=== PATIENT | female | born 1985 | race Caucasian/White ===

== ENCOUNTER 2017-04-23 18:42 | Inpatient (IN) ==
--- OUTSIDE RECORDS SUMMARY | 2017-04-23 18:46 | External Medical Summary | Continuity of Care Document ---
:1985 Author Organization [facility] Address [address] [place], [place] [id number] Phone Allergies, Adverse Reactions, Alerts Substance Reaction Severity Status No Known Drug Allergies Unknown Active Medications Medication Instructions Dosage Effective Status Comments Dates (start - stop) Generic Order OTC Multi-greens - Active Vitamin - once daily levothyroxine 25 take 1 tablet by 25 MCG - Active generic mcg tablet oral route every Synthroid day for Hypothyroid Aspir-81 81 mg take 1 tablet by 81 MG - Active tablet,delayed oral route every release day 28 mg take 1 tablet by Not Available - Active iron-800 mcg tablet oral route every day Problems Condition Effective Dates (start - stop) Clinical Status Supervision of other high risk - pregnancies, third trimester 34 weeks gestation of - Ot dis of bld/bld-form org/immun mechnsm comp preg, 1st tri Supervision of other high risk - pregnancies, second trimester Endo, nutritional and metab diseases - comp preg, second tri 16 weeks gestation of - Supervision of other high risk - pregnancies, first trimester 12 weeks gestation of - Supervision of other high risk - pregnancies, first trimester 9 weeks gestation of - Supervision of other high risk - pregnancies, first trimester 12 weeks gestation of - Supervision of other high risk - pregnancies, second trimester 24 weeks gestation of - Supervision of other high risk - pregnancies, second trimester Endo, nutritional and metab diseases - comp preg, second tri 20 weeks gestation of - Supervision of other high risk - pregnancies, second trimester 20 weeks gestation of - Supervision of other high risk - pregnancies, third trimester Endo, nutritional and metab diseases - comp preg, third tri 36 weeks gestation of - Supervision of other high risk - pregnancies, third trimester Endo, nutritional and metab diseases - comp preg, third tri 28 weeks gestation of - Type O blood, Rh negative - Supervision of other high risk - pregnancies, third trimester 32 weeks gestation of - Supervision of other high risk - pregnancies, third trimester 30 weeks gestation of - Endo, nutritional and metab diseases - comp preg, third tri Encounter For Screening For - Streptococcus B 36 weeks gestation of - Procedures Procedure Date OB Visit No Charge Results Test Name Date and Time Measure Units Reference Range Abnormal Flag Comments Unknown Advance Directives Directive Yes / No Effective Date File Name Unknown Encounters Encounter Practice Location Reason(s) Diagnoses Date Provider Care Team Description For Visit Members Elva Carlson Willis Referring In Womens 6-201 [place]. 700 Provider: [facility] [place] [address], [place], Dr, Jan 700 [id number], [facility], Medical [place] tel:[phone] [place], [facility] 120, [address] [id number] [facility]. [place], tel: [phone]. [id number] tel:[phone] Elva Onofre Willis Referring In Womens nutritional 8-201 [place]. 700 Provider: [facility] [place], and metab 7 Medical [place] [address], diseases comp [facility] [place], preg, third , Jan 700 [id number], triEncounter [facility], [facility] For [place] tel:[phone] Screening For [place], Jan 120, [address] Streptococcus [id number] [place], B36 weeks , [place]. [place], gestation of tel:[phone]. [phone] tel:[phone] Elva Carlson Supervision of Nov-0 Willis Referring In Womens Ultrasound other high 8-201 [place]. 700 Provider: Health TERA, risk 7 Medical [place] [address], pregnancies, [place], third Jan Beth [id number], trimesterEndo, 120, Medical [place] nutritional [place] tel: and metab [place], Jan 120, [address] diseases comp [id number] [place], preg, third , [place]. [place], tri36 weeks tel:[phone]. gestation of [id number] tel: [phone] Elva Carlson Supervision of Oct-2 Willis Referring In Womens other high 6-201 [place]. 700 Provider: Hunter HALEY risk 7 Medical [place] [address], pregnancies, [place], third Jan Beth [id number], [id number] 120, Medical [place] weeks [place] tel: gestation of [place], Jan 120, [address] [id number] [place], , [place]. [place], tel:[phone]. [id number] tel:[phone] Elva Carlson Supervision of Oct-1 Willis Referring In Womens other high 0-201 [place]. 700 Provider: Hunter HALEY, risk 7 Medical [place] [address], pregnancies, [place], third Jan Beth [id number], [email or web address] 120, Medical [place] weeks [place] tel: gestation of [place], Jan 120, [address] [id number] [place], , [place]. [place], tel:[phone]. [id number] tel:[phone] Elva Carlson Supervision of Sep-2 Willis Referring In Womens other high 6-201 [place]. 700 Provider: Hunter HALEY, risk 7 Medical [place] [address], pregnancies, [facility] [place], third Jan Beth [id number], [email or web address] 120, Medical [place] weeks [place] tel: gestation of [place], Jan 120, [address] [id number] [facility] , . [place], tel: [phone]. [id number] tel:[phone] Elva Carlson Supervision of Sep-1 Willis Referring In Womens other high 2-201 [place]. 700 Provider: Hunter HALEY, risk 7 Medical [place] [address], pregnancies, [facility] [place], [place], third Jan Beth [id number], trimesterEndo, 120, Medical [place] nutritional [place], [place] tel: and metab [place], Jan 120, [address]67 diseases comp [id number] [place], preg, third , [place]. [place], tri28 weeks tel:[phone]. gestation of [id number] tel: pregnancyType [id number] O blood, Rh negative [facility] Supervision of Willis Referring In Womens other high 7-201 [place]. 700 Provider: Hunter HALEY risk 7 Medical [place] [address], pregnancies, [place], second Jan Beth [id number], [id number] 120, Medical [place] weeks [place] tel: gestation of [place], Jan 120, [address] [id number] [facility] , . [place], tel:[phone]. [id number] tel:[phone] Elva aCrlson Supervision of Willis Referring In Womens other high 0-201 [place]. 700 Provider: Hunter HALEY, risk 7 Medical [place] [address], pregnancies, [facility] [place], second Jan Beth [id number], [email or web address] 120, Medical [place] weeks [place] tel: gestation of [place], Jan 120, [address]79 [id number] [facility] , . [place], tel: [phone]. [id number] tel:[phone] Elva Carlson Supervision of Nov-2 Willis Referring In Womens Ultrasound other high 0-201 [place]. 700 Provider: Hunter HALEY, risk 7 Medical [place] [address], pregnancies, [place], second Jan Beth [id number], trimesterEndo, 120, Medical [place] nutritional [place] tel: and metab [place], Jan 120, [address] diseases comp [id number] [place], preg, second , [place]. [place], tri20 weeks tel:[phone]. gestation of [id number] tel: [phone] Elva Carlson Supervision of Zaki-2 Willis Referring In Womens other high 1-201 [place]. 700 Provider: Hunter HALEY risk 7 Medical [place] [address], pregnancies, [facility] [place], second , [facility] 700 , trimesterEndo, 120, Medical [place] nutritional [place] tel: and metab [place], Jan 120, [address]15 diseases comp [id number] [place], preg, second , [place]. [place], tri16 weeks tel:[phone]. gestation of [id number] tel: [phone] Elva Carlson Supervision of May-2 Willis Referring In Womens other high 4-201 [place]. 700 Provider: Hunter HALEY risk 7 Medical [place] [address], pregnancies, [place], first , [facility] 700 [id number], [email or web address] 120, Medical [place] weeks [place] tel: gestation of [place], Jan 120, [address] [id number] [place], , [place]. [place], tel:[phone]. [id number] tel:[phone] Elva Carlson Supervision of May-2 Willis Referring In Womens Ultrasound other high 4-201 [place]. 700 Provider: Hunter HALEY, risk 7 Medical [place] [address], pregnancies, [place], first , [facility] 700 [id number], [id number] 120, Medical [place] weeks [place] tel:21 gestation of [place], Jan 120, 52843 [id number] [place], , . [place], tel:[phone]. [id number] tel:[phone] Elva Carlson May-0 Willis In Womens 7-201 [place]. 700 Hunter HALEY, 7 Medical [address], [address] , 120, [place], [place]: [place], [address] [id number] , . tel: [phone] Elva Carlson Supervision of May-0 Willis Referring In Womens other high 2-201 [place]. 700 Provider: Health [place], risk 7 Medical [place] [address], pregnancies, Center [place], first , [place] [id number], [id number] 120, Medical weeks [place] tel:+21 gestation of [place], Jan 120, [address]598 [id number] [facility]. [place], tel: [phone]. [id number] tel:[phone] Elva Carlson Apr-1 Willis In Womens 8-201 [place]. 700 Health [place], 7 Medical [address], [facility] [place], , [facility] , 120, [place], tel:+21 [place], [phone] [phone] , . tel: [phone] Elva Carlson Oth dis of Aug-1 Willis Referring In Womens bld/bld-form 1-201 [place]. 700 Provider: Health [place], org/immun 7 Medical [place] [address] [place], preg, 1st tri , [place] [address] [id number], 120, Medical [facility] tel:+ [place], Jan 120, [address] [id number] [facility]. [place], tel: [phone]. [id number] tel:[phone] Elva Carlson Dec-1 [facility] In Womens 9-201 [place]. [facility], 2 700 [address], [place], [place] [id number], , [facility] 120, tel:+21 [place], [address] [place], [id number] , . tel: [phone] Family History Family Member Diagnosis Age At Onset Father Blood Disorder Father Thrombosis Paternal Grandmother Stroke No family history of Diabetes No family history of Kidney Problems No family history of Breast Cancer No family history of Colon Cancer No family history of Epilepsy Maternal Grandfather Cardiovascular Disease No family history of Ovarian Cancer No family history of Thyroid Disorder Paternal Grandfather Cardiovascular Disease Paternal aunt Blood Disorder Paternal Grandmother Thrombosis Paternal Grandmother Stroke Maternal Aunt Gynecological Problem No family history of Hypertension No family history of Osteoporosis No family history of Lung Disease Immunizations Vaccine Date Status Comments Influenza, injectable, completed Source: New Immunization Record quadrivalent, preservative free, 3 yrs or older Tdap completed Source: New Immunization Record Rhophylac completed Source: New Immunization Record Payers Payer name Insurance type Covered alliance party ID Authorization(s) [facility] [id number] [facility] [id number] [facility] [id number] [facility] [id number] Social History Type Description Quantity Date Captured Alcohol Use Details No Caffeine Use Details Unknown Tobacco Use Status Unknown Smoking Status Never smoker Vital Signs Date / Height Weight BMI Pulse Blood Temperature Respiratory Body Head BMI Time: Rate Pressure Rate Surface Circumference percentile Area 188.40 29.9 125/64 2017 lbs 5 mm[Hg] 10:19 kg/m AM eter (2) Chief Complaint And Reason For Visit Unknown Chief Complaint And Reason For Visit Reason For Referral Reason For Referral Unknown Plan Of Care Date Type Action Status Future Order: Radiology Order Nuchal Translucency ([id number]) Ordered Future Order: Radiology Order Complete OB Ultrasound > 14 Ordered Weeks ([id number]) Future Order: Radiology Order Ultrasound OB Follow-up ([id number]) Ordered Date Type Problem Goal Intervention Status Start Date Unknown. History Of Present Illness Encounter Date Complaint History Of Present Illness This patient has no known history of present illness Functional Status Encounter Date Functional Assessment Cognitive Assessment Unknown Medications Administered Medication Instructions Dosage Effective Dates (start - stop) Status Comments Drug Treatment Unknown Instructions Date Instruction Additional Information new ob handbook Zika virus assessment & precautions HIV and other routine tests risk factors identified by history anticipated course of care nutrition and weight gain counseling, special diet toxoplasmosis precautions (cats / raw meat) sexual activity exercise indications for ultrasound influenza vaccine environmental / work hazards travel use of any medications (including supplements, vitamins, herbs, OTC drugs) domestic violence seat belt use childbirth classes / hospital facilities hospital registration genetic testing
--- OUTSIDE RECORDS SUMMARY | 2017-04-23 18:46 | External Medical Summary | Continuity of Care Document ---
:1985 Author Organization [facility] Address [address] [place], [place] [id number] Phone Allergies, Adverse Reactions, Alerts Substance Reaction [...] third trimester 30 weeks gestation of - Oth dis of bld/bld-form org/immun mechnsm comp preg, [...] third trimester 32 weeks gestation of - Procedures Procedure Date OB Visit No Charge Results Test Name Date and Time Measure Units Reference Range Abnormal Flag Comments Unknown Advance Directives Directive Yes / No Effective Date File Name Unknown Encounters Encounter Practice Location Reason(s) Diagnoses Date Provider Care Team Description For Visit Members Elva Carlson Supervision of Oct-1 Willis Referring In Womens other high 0-201 [place]. 700 Provider: Hunter HALEY risk 7 Medical [place] [address], pregnancies, [place], third Dr [facility] 700 [id number], [id number] 120, Medical weeks [facility] tel:+ gestation of [place], [facility] 120, [address] [id number] [facility]. [place], tel: [phone]. [id number] tel:[phone] Elva Carlson Supervision of Sep-2 Willis Referring In Womens other high 6-201 [place]. 700 Provider: Hunter HALEY risk 7 Medical [place] [address], pregnancies, [place], third Dr [facility] 700 [id number], 120, Medical [facility] tel: gestation of [place], [facility] 120, [address] [id number] [facility]. [place], tel: [phone]. [id number] tel:[phone] Elva Carlson Supervision of Sep-1 Willis Referring In Womens other high 2-201 [place]. 700 Provider: Hunter HALEY risk 7 Medical [place] [address], pregnancies, [place], third Dr [facility] 700 [id number], trimesterEndo, 120, Medical [place] nutritional [facility] tel: and metab [place], Jan 120, [address] diseases comp [id number] [place], preg, third , [place], tri28 weeks tel:[phone]. gestation of [id number] tel: pregnancyType [id number] O blood, Rh negative [facility] Supervision of Willis Referring In Womens other high 7-201 [place]. 700 Provider: Hunter HALEY risk 7 Medical [place] [address], pregnancies, [place], second , Jan 700 [id number], [id number] 120, Medical [place] weeks [facility] tel:21 gestation of [place], Jan 120, [address] [id number] [place], , [place], tel:[phone]. [id number] tel:[phone] Elva Carlson Supervision of Nov- Willis Referring In Womens other high 0-201 [place]. 700 Provider: Hunter HALEY risk 7 Medical [place] [address], pregnancies, [place], second , Jan 700 [id number], [id number] 120, Medical [place] [facility] tel:21 gestation of [place], Jan 120, [address] [id number] [place], , [place], tel:[phone]. [id number] tel:[phone] Elva Carlson Supervision of Nov- Willis Referring In Womens Ultrasound other high 0-201 [place]. 700 Provider: Hunter HALEY risk 7 Medical [place] [address], pregnancies, [place], second , Jan 700 [id number], trimesterEndo, 120, Medical [place] nutritional [facility] tel: and metab [place], Jan 120, [address] diseases comp [id number] [place], preg, second , [place]. [place], tri20 weeks tel:[phone]. gestation of [id number] tel: [phone] Elva Carlson Supervision of Zaki-2 Willis Referring In Womens other high 1-201 [place]. 700 Provider: Hunter HALEY risk 7 Medical [place] [address], pregnancies, [place], second , Jan 700 [id number], trimesterEndo, 120, Medical [place] nutritional [place] tel: and metab [place], Jan 120, [address] diseases comp [id number] [place], preg, second , [place], tri16 weeks tel:[phone]. gestation of [id number] tel: [phone] Elva Carlson Supervision of May-2 Willis Referring In Womens other high 4-201 [place]. 700 Provider: Health TERA risk 7 Medical [place] [address], pregnancies, [place], first , Jan 700 [id number], [id number] 120, Medical [place] [facility] tel: gestation of [place], Jan 120, [address] [id number] [place], , [place], tel:[phone]. [id number] tel:[phone] Elva Carlson Supervision of May-2 Willis Referring In Womens Ultrasound other high 4-201 [place]. 700 Provider: Hunter HALEY, risk 7 Medical [place] [address], pregnancies, [place], first , Jan 700 [id number], [email or web address] 120, Medical [place] weeks [place] tel: gestation of [place], Jan 120, [address] [id number] [place], , [place]. [place], tel:[phone]. [id number] tel:[phone] Elva Carlson May-0 Willis In Womens 7-201 [place]. 700 Health TERA, Medical [address], [facility] [address] [facility] [id number], 120, [place], tel:+ [place], [address] [id number] , [place]. tel: [phone] Elva Carlson Supervision of May-0 Willis Referring In Womens other high 2-201 [place]. 700 Provider: Hunter HALEY risk 7 Medical [place] [address], pregnancies, [place], first Dr Jan 700 [id number], [id number] 120, Medical [place] weeks [place] tel: gestation of [place], Jan 120, [address] [id number] [place], , [place], tel: [phone]. [id number] tel:[phone] Elva Carlson Apr- Willis In Womens 8-201 [place]. 700 Health PA, 7 Medical [address], [place], , [facility] [id number], 120, [place], tel:+[phone] [place], [address] [id number] , . tel: [phone] Elva Carlson Oth dis of Aug- Willis Referring In Womens bld/bld-form [place]. 700 Provider: Health [place], org/immun 7 Medical [place] [address], [facility] Willis R, [place], preg, 1st tri , [facility] 700 [id number], 120, [facility] [place], [place] tel:+21 [place], [facility] 120, [address] [id number] [facility]. [place], tel: [phone]. [id number] tel:[phone] Elva Carlson Dec- [facility] In Womens 9-201 [place]. Health [place], 2 700 [address], [place], [place], [place] [id number], , [facility] 120, tel:+21 [place], [address] [place], [id number] , . tel: [phone] Family History Family Member Diagnosis Age At [...] Lung Disease Immunizations Vaccine Date Status Comments Rhophylac completed Source: New Immunization Record Payers Payer name Insurance type Covered libertarian ID Authorization(s) [facility] [id number] [facility] [id number] Social History Type Description Quantity Date Captured Alcohol Use Details No Caffeine Use Details Unknown Tobacco Use Status Unknown Smoking Status Never smoker Vital Signs Date / Height Weight BMI Pulse Blood Temperature Respiratory Body Head BMI Time: Rate Pressure Rate Surface Circumference percentile Area 180.10 28.6 lbs 3 mm[Hg] 4:15 kg/m PM eter (2) 28.1 1 mm[Hg] 4:15 kg/m PM eter (2) Chief Complaint And Reason For Visit Unknown Chief Complaint And Reason For Visit Reason For Referral Reason For Referral Unknown Plan Of Care Date Type Action Status Appointment Syeda Zimmerman BOOKED Appointment Syeda Zimmerman BOOKED Appointment Syeda Zimmerman BOOKED Future Order: Radiology Order Nuchal Translucency ([id number]) Ordered Future Order: Radiology Order Complete OB Ultrasound > 14 Ordered Weeks ([id number]) Date Type Problem Goal Intervention Status Start [...]
--- OUTSIDE RECORDS SUMMARY | 2017-04-23 18:46 | External Medical Summary | Continuity of Care Document ---
:1985 Author Organization [facility] [employer] [facility] Address [address] [place], [place] [id number] Phone Allergies, Adverse Reactions, Alerts Substance Reaction [...] - Type O blood, Rh negative - Ot dis of bld/bld-form org/immun mechnsm [...] third trimester 30 weeks gestation of - Procedures Procedure Date Injection Administration Rhophylac 100 Units OB Visit No Charge Antibody Screen, RBC Glucose test Hemoglobin count, colorimetric Hematocrit blood count TSH Venpnctr fngr/heel/ear stick routne Results Test Name Date and Time Measure Units Reference Range Abnormal Flag Comments Panel Description: Glucose [Mass/volume] in Serum or Plasma --1 hour post 50 g glucose PO GLUCOSE, GESTATIONAL 96 mg/dL <140 N Test performed at [facility] (50G)-140 16:05:00 DIAGNOSTICS [id number] [place] [address]Ewlearrk: NAYELI RIZVI DO,MPH Panel Description: HEMOGLOBIN + HEMATOCRIT HEMOGLOBIN 16:05:00 11.7 g/dL 11.7-15.5 N HEMATOCRIT 16:05:00 34.0 % 35.0-45.0 L Test performed at [facility] [id number] [place], [place] [id number]: NAYELI RIZVI DO,MPH Panel Description: Thyrotropin [Units/volume] in Serum or Plasma TSH 16:05:00 1.93 mIU/L N Reference Range > or=20 Years 0.40-4.50 Ranges First trimester 0.26-2.66 Second trimester 0.55-2.73 Third trimester 0.43-2.91Test performed at [facility] [id number] [place], [place] [address]Cloud ElementsROBERTO [place] [id number]: NAYELI RIZVI DO,MPH Panel Description: ANTIBODY SCREEN, RBC W/REFL ID, TITER AND AG ANTIBODY NO ANTIBODIES N Reference SCREEN, RBC 16:05:00 DETECTED range No W/REFL ID, antibodies detected This TITER AND AG assay is a screening test for the detection of red blood cell antibodies. The test is not to be used for pretransfusion screening or for the medical management of an alloimmunized . REPORT COMMENT:FASTING:NOTest performed at [facility] [id number] [place] [address]Medtqgzq: NAYELI RIZVI DO,MPH Advance Directives Directive Yes / No Effective Date File Name Unknown Encounters Encounter Practice Location Reason(s) Diagnoses Date Provider Care Team Description For Visit Members Elva Carlson Supervision of Willis [facility] 6[facility] [place]. 700 Provider: Hunter [facility] [place] [address], pregnancies, [place], third Dr Jan 700 [id number], [id number] 120, Medical [place] weeks [place] tel: gestation of [place], Jan 120, [address] [id number] [facility]. [place], tel: [phone]. [id number] tel:[phone] Elva Carlson Supervision of Willis Referring In Womens other [facility] 2-[address] [place]. 700 Provider: Hunter HALEY [facility] [place] [address], pregnancies, Center [place], third , Jan 700 [id number], trimesterEndo, 120, Medical nutritional [facility] tel: and metab [facility] Jan 120, [address] diseases comp [id number] Aldo [facility] , . [place], tri28 weeks tel: [phone]. gestation of [id number] tel: pregnancyType [id number] O blood, Rh negative Elva Carlson Supervision of Willis [facility] 7-201 [place]. 700 Provider: Hunter HALEY [facility] [place] [address], pregnancies, Center [place], second , Jan 700 [id number], [id number] 120, Medical US weeks Alis [place]son Dr tel: gestation of [place], Jan 120, [address] [id number] [place], , [place]. [place], tel:[phone]. [id number] tel:[phone] Elva Carlson Supervision of Demarcus-2 Willis Referring In Womens other high 0-201 [place]. 700 Provider: Hunter HALEY risk 7 Medical [place] [address], pregnancies, [place], second Dr Jan 700 [id number], [id number] 120, Medical [place] weeks Ald[place] tel: gestation of [place], Jan 120, [address] [id number] [place], , [place]. [place], tel:[phone]. [id number] tel:[phone] Elva Carlson Supervision of Demarcus-2 Willis Referring In Womens Ultrasound other high 0-201 [place]. 700 Provider: Hunter HALEY risk 7 Medical [place] [address], pregnancies, Center [place], second Dr Jan 700 [id number], trimesterEndo, 120, Medical [place] nutritional Ald[place] tel: and metab [place], Jan 120, [address] diseases comp [id number] [place], preg, second , [place]. [place], tri20 weeks tel:[phone]. gestation of [id number] tel: [phone] Elva Carlson Supervision of Zaki-2 Willis Referring In Womens other high 1-201 [place]. 700 Provider: Hunter HALEY risk 7 Medical [place] [address], pregnancies, Center [place], second , Jan 700 [id number], trimesterEndo, 120, Medical [place] nutritional Aldo [place] tel: and metab [place], Jan 120, [address] diseases comp [id number] [place], preg, second , [place]. [place], tri16 weeks tel:[phone]. gestation of [id number] tel: [phone] Elva Carlson Supervision of September-2 Willis Referring In Womens other high 4-201 [place]. 700 Provider: Hunter HALEY risk 7 Medical [place] [address], pregnancies, [place], first Dr Jan 700 [id number], 120, Medical US weeks [facility] tel:+21 gestation of [place], Jan 120, [address] [id number] [place], , [place]. [place], tel: [phone]. [phone] tel:[phone] Elva Carlson Supervision of May-2 Willis Referring In Womens Ultrasound other high 4-201 [place]. 700 Provider: Health [place], risk 7 Medical [place] [address], pregnancies, [place], first , [place] [address] , [id number] 120, Medical US [facility] tel:+21 gestation of [place], Jan 120, [address] [id number] [place], , [place]. [place], tel: [phone]. [id number] tel:[phone] Elva Carlson May-0 Willis In Womens 7-201 [place]. 700 Health TERA, 7 Medical [address], [place] [address] [facility] , 120, [place], [place]:+ [place], [address] [phone] , [place]. tel: [phone] Elva Carlson Supervision of May-0 Willis Referring In Womens other high 2-201 [place]. 700 Provider: Health TERA, risk 7 Medical [place] [address], pregnancies, [place], first , [place] [address] [id number], trimester9 120, Medical US weeks [facility] tel: gestation of [place], Jan 120, [address] [id number] [facility] , [place]. [place], tel: [phone]. [id number] tel:[phone] Elva Carlson Apr-1 Willis In Womens 8-201 [place]. 700 Health [place], 7 Medical [address], [place] [address] [facility] , 120, [place], tel:+21 [place], [id number] , [place]. tel: [phone] Elva Carlson Oth dis of Apr-1 Willis Referring In Womens bld/bld-form 1-201 [place]. 700 Provider: Health TERA, org/immun 7 Medical [place] [address], [facility] [place], preg, 1st tri , [facility] 700 [id number], [facility], [facility] tel:[phone] [place] [address], [address] [id number] [facility]. [place], tel: [phone]. [id number] tel:[phone] Elva Carlson Apr- [facility] W[facility] 9-201 [place]. [facility], 2 700 [address], [facility] [id number], , [facility] 120, tel:21 [place], [address] [place], [id number] , . tel: [phone] Family History Family Member Diagnosis Age At [...] Record Payers Payer name Insurance type Covered republican ID Authorization(s) [facility] [id number] [facility] [id number] Social History Type Description Quantity Date Captured Alcohol Use Details No Caffeine Use Details Unknown Tobacco Use Status Unknown Smoking Status Never smoker Vital Signs Date / Height Weight BMI Pulse Blood Temperature Respiratory Body Head BMI Time: Rate Pressure Rate Surface Circumference percentile Area 176.80 28.1 lbs 1 mm[Hg] 3:11 kg/m PM eter (2) Chief Complaint And Reason For Visit Unknown Chief Complaint And Reason For Visit Reason For Referral Reason For Referral Unknown Plan Of Care Date Type Action Status Appointment Syeda Zimmerman BOOKED Future Order: Radiology Order Nuchal Translucency (60058) Ordered Future Order: Radiology Order Complete OB Ultrasound > 14 Ordered Weeks (28670) Date Type Problem Goal Intervention Status Start [...]
--- OUTSIDE RECORDS SUMMARY | 2017-04-23 18:47 | External Medical Summary | Continuity of Care Document ---
:1985 Author Organization [facility] Allergies Active Description Code Type Severity Reaction Onset Reported/ Identified Relationship Clinical to Patient Status Yes No Known 51540 3 N/A N/A Drug 0 Allergies Medications Medication Packaging Start Date Stop Date Route Dosage Sig Tablet 09/07/2016 ASPIR 81 take 1 tablet by oral route every day Tablet 09/27/2016 LEVOTHYROXINE take 1 SODIUM tablet by oral route every day for Hypothyroid 11/10/2016 Generic Order OTC [facility] Vitamin - once daily Problems Date Dx Coded Attending Type Code Diagnosis Diagnosed By 10/13/2016 Otto Pedro09.891 Supervision of other high risk pregnancies, first trimester 10/13/2016 Otto Pedro Z3A.12 12 weeks gestation of 12/09/2016 Otto Pedro O09.892 Supervision of other high risk pregnancies, second trimester 12/09/2016 Otto Pedro O99.282 Endo, nutritional and metab diseases comp preg, second tri 12/09/2016 Otto Pedro Z3A.20 20 weeks gestation of 03/30/2017 Otto Pedro O09.893 Supervision of other high risk pregnancies, third trimester 03/30/2017 Otto Pedro O99.283 Endo, nutritional and metab diseases comp preg, third tri 03/30/2017 Otto Pedro Z3A.36 36 weeks gestation of Procedures Code Description Performed By Performed On 10/13/2016 85699 Ultrasound, Nuchal Translucency Measurement 12/09/2016 40987 Ultrasnd exam of preg uterus, compl 03/30/2017 11836 Ultrasnd preg uterus, flwup/repeat Results Encounters ACCT No. Visit Discharge Status Pt. Type Provider Facility Loc./Unit Complaint Date/Time [id number] 04/13/2017 04/13/2017 [facility], 11:30:00 23:59:59 Otto Galvan [id number] 04/07/2017 04/07/2017 [facility], 09:30:00 23:59:59 Otto Galvan [id number] 03/30/2017 03/30/2017 [facility], 14:00:00 23:59:59 Otto Galvan [id number] 03/30/2017 03/30/2017 [facility] Outpatient [facility], 13:45:00 23:59:59 Otto Galvan [id number] 03/17/2017 03/17/2017 [facility] [place], 10:00:00 23:59:59 Otto Galvan [id number] 03/01/2017 03/01/2017 [facility], 16:15:00 23:59:59 Otto Galvan [id number] 02/15/2017 02/15/2017 [facility] Outpatient [facility], 16:15:00 23:59:59 Otto Galvan [id number] 02/01/2017 02/01/2017 [facility] Outpatient [facility], 15:00:00 23:59:59 Otto Galvan [id number] 01/06/2017 01/06/2017 [facility], 15:30:00 23:59:59 Otto Galvan [id number] 12/09/2016 12/09/2016 [facility], 14:45:00 23:59:59 Otto Galvan [id number] 12/09/2016 12/09/2016 [facility], 14:15:00 23:59:59 Otto Galvan [id number] 11/12/2016 11/12/2016 [facility], 11:09:00 23:59:59 Otto Galvan [id number] 11/10/2016 11/10/2016 [facility], 16:15:00 23:59:59 Otto Galvan [id number] 10/13/2016 10/13/2016 [facility], 14:30:00 23:59:59 Otto Galvan [id number] 10/13/2016 10/13/2016 [facility], 13:45:00 23:59:59 Otto Galvan [id number] 09/26/2016 09/26/2016 [facility], 21:54:00 23:59:59 Otto Galvan [id number] 09/21/2016 09/21/2016 [facility], 10:15:00 23:59:59 Otto Galvan [id number] 09/07/2016 09/07/2016 [facility], 17:21:00 23:59:59 Otto Galvan [id number] 08/31/2016 08/31/2016 [facility] Outpatient Willis, 13:15:00 23:59:59 Otto Galvan [id number] 03/11/2015 03/11/2015 [facility] Outpatient Willis, 15:12:00 23:59:59 Otto Galvan [id number] 04/21/2017 [facility], 13:10:00 Otto Galvan
--- OUTSIDE RECORDS SUMMARY | 2017-04-23 18:47 | External Medical Summary | Continuity of Care Document ---
:1985 Author Organization [facility] [employer] [facility] Address [address] [place], [place] [phone] Phone Allergies, Adverse Reactions, Alerts Substance Reaction [...] second trimester 24 weeks gestation of - Ot dis of bld/bld-form org/immun mechnsm comp preg, 1st tri Endo, nutritional and metab diseases - comp preg, second tri Supervision of other high risk - pregnancies, second trimester 16 weeks gestation of - Supervision of [...] second trimester 20 weeks gestation of - Procedures Procedure Date OB Visit No Charge Results Test Name Date and Time Measure Units Reference Range Abnormal Flag Comments Unknown Advance Directives Directive Yes / No Effective Date File Name Unknown Encounters Encounter Practice Location Reason(s) Diagnoses Date Provider Care Team Description For Visit Members Elva Carlson Supervision of Willis Referring In Womens other high risk 7-201 [place]. 700 Provider: Health [place], pregnancies, 7 Medical [place] [address], second Center Willis Gal[place], [place], [id number] , Jan 700 [id number], weeks gestation 120, Medical US of [place] tel:+ [place], Jan 120, [address] [id number] [facility]. [place], tel: [phone]. [phone] tel:[phone] Elva Carlson Supervision of Willis Referring In Womens other high risk 0-201 [place]. 700 Provider: Health PA, pregnancies, 7 Medical [place] [address], second Center Willis Galvan [place], [place], [id number] , Jan 700 [id number], weeks gestation 120, Medical US of [place] tel:+ [place], Jan 120, [address] [id number] [facility]. [place], tel: [phone]. [phone] tel:[phone] Elva Carlson Supervision of Willis Referring In Womens Ultrasound other high risk 0-201 [place]. 700 Provider: Health [place], pregnancies, 7 Medical [place] [address], second Center Willis Galvan [place], [place], trimesterEndoDr, Jan 700 [id number], nutritional and 120, Medical US metab diseases Ald[place] tel: comp preg, [place], Jan 120, [address] second tri20 [id number] Ald[place], weeks gestation , [place]. [place], of tel: [phone]. [phone] tel:[phone] Elva Carlson Endo, Zaki-2 Willis Referring In Womens nutritional and 1-201 [place]. 700 Provider: Health PA, metab diseases Medical [place] [address], comp preg, Center Willis R, [place], [place], second , Jan 700 [id number], triSupervision 120, Medical US of other high Aldo [place] tel: risk [place], Jan 120, [address] pregnancies, [id number] [place], [facility] , [place]. [place], [id number] tel: [phone]. weeks gestation [id number] tel: of [phone] Elva Carlson Supervision of May-2 Willis Referring In Womens other high risk 4-201 [place]. 700 Provider: Health PA, pregnancies, 7 Medical [place] [address], first Center [place], [id number] , Jan 700 [id number], weeks gestation 120, Medical US of [place] tel: [place], Jan 120, [address] [id number] [place], , . [place], tel: [phone]. [id number] tel:[phone] Elva Carlson Supervision of May-2 Willis Referring In Womens Ultrasound other high risk 4-201 [place]. 700 Provider: Health PA, pregnancies, 7 Medical [place] [address], first [place], [email or web address] , Jan 700 [id number], weeks gestation 120, Medical US of [place] tel: [place], Jan 120, 57738 [id number] Carlson, , . [place], tel: [phone]. [phone] tel:[phone] Elva Carlson May-0 [facility] In Womens 7-201 [place]. 700 Health [place], 7 Medical [address], [place], Dr Jan [id number], 120, [place], [place], [address] [id number] , [place]. tel: [phone] Elva Carlson Supervision of May-0 Willis Referring In Womens other high risk 2-201 [place]. 700 Provider: Health PA, pregnancies, 7 Medical [place] [address], first Center [place], trimester9 , Jan 700 [id number], weeks gestation 120, Medical US of [place] tel: [place], Jan 120, [address] [id number] [facility]. [place], tel: [phone]. [phone] tel:[phone] Elva Carlson Aug- Willis In Womens 8-201 [place]. 700 Health PA, 7 Medical [address], [place], , [facility] [id number], 120, [place], tel:[phone] [place], [address] [id number] , . tel: [phone] Elva Carlson Ot dis of Aug- Willis Referring In Womens bld/bld-form [place]. 700 Provider: Health PA, org/immun 7 Medical [place] [address], [facility] Willis R, [place], preg, 1st tri , [place] [address] [id number], [facility], [facility] tel:21 [place], [facility] 120, [address] [id number] [facility]. [place], tel: [phone]. [phone] tel:[phone] Elva Carlson Dec- [facility] 9-201 [place]. Health PA, 2 700 [address], [place], [place] [id number], , [facility] 120, tel: [place], [address] [place], [id number] , . tel: [phone] Family History Family Member Diagnosis Age At [...] Lung Disease Immunizations Vaccine Date Status Comments Unknown Payers Payer name Insurance type Covered republican ID Authorization(s) [facility] [id number] Social History Type Description Quantity Date Captured Alcohol Use Details No Caffeine Use Details Unknown Tobacco Use Status Unknown Smoking Status Never smoker Vital Signs Date / Height Weight BMI Pulse Blood Temperature Respiratory Body Head BMI Time: Rate Pressure Rate Surface Circumference percentile Area 174.00 27.6 115/65 lbs 6 mm[Hg] 3:24 kg/m PM eter (2) Chief Complaint And Reason For Visit Unknown Chief Complaint And Reason For Visit Reason For Referral Reason For Referral Unknown Plan Of Care Date Type Action Status Appointment Syeda Zimmerman BOOKED Future Order: Radiology Order Nuchal Translucency ([id number]) Ordered Future Order: Radiology Order Complete OB Ultrasound > 14 Ordered Weeks (06657) Date Type Problem Goal Intervention Status Start [...]
--- OUTSIDE RECORDS SUMMARY | 2017-04-23 18:47 | External Medical Summary | Continuity of Care Document ---
:1985 Author Organization [facility] Address [address] [place], [place] [id number] Phone Allergies, Adverse Reactions, Alerts Substance Reaction [...] third tri 36 weeks gestation of - Oth dis of [...] third trimester 34 weeks gestation of - Supervision of other high risk - pregnancies, third trimester 37 weeks gestation of - Supervision of other high risk - pregnancies, third trimester 30 weeks gestation of - Supervision of other high risk - pregnancies, third trimester Endo, nutritional and metab diseases - comp preg, third tri 38 weeks gestation of - Endo, nutritional and metab diseases - comp preg, third tri Encounter For Screening For - Streptococcus B 36 weeks gestation of - Procedures Procedure Date Ultrasnd preg uterus, flwup/repeat Results Test Name Date and Time Measure Units Reference Range Abnormal Flag Comments Unknown Advance Directives Directive Yes / No Effective Date File Name Unknown Encounters Encounter Practice Location Reason(s) Diagnoses Date Provider Care Team Description For Visit Members Associates Aldo Supervision of Willis Referring In Womens other high 2-201 [place]. 700 Provider: Health PA, risk 7 Medical [place] [address], pregnancies, [place], [facility] Jan Beth 700 [id number], trimesterEndo, 120, Medical US nutritional Aldo [place] tel:[phone] and metab [place], Jan 120, 33517 diseases comp [id number] asia Carlson, third , . [place], tri38 weeks tel: [phone]. gestation of [id number] tel: [phone] Elva Carlson Supervision of Nov-1 Willis Referring In Womens other high 6-201 [place]. 700 Provider: Health TERA, risk 7 Medical [place] [address], pregnancies, [facility] [place], third , Jan 700 [id number], [id number] 120, Medical US weeks [facility] tel:21 gestation of [place], Jan 120, [address] [id number] [place], , [place]. [place], tel:[phone]. [id number] tel:[phone] Elva Carlson Endo, Nov-0 Willis Referring In Womens nutritional 8-201 [place]. 700 Provider: Health PA, and metab 7 Medical Otto [address], diseases comp [facility] [place], preg, third , Jan 700 [id number], triEncounter 120, Medical [place] For [facility] tel: Screening For [place], Jan 120, [address] Streptococcus [id number] Carlson, B36 weeks , [place]. [place], gestation of tel:[phone]. [id number] tel:[phone] Elva Carlson Supervision of Nov-0 Willis Referring In Womens Ultrasound other high 8-201 [place]. 700 Provider: Health TERA, risk 7 Medical Otto [address], pregnancies, [facility] [place], third , Jan 700 [id number], trimesterEndo, 120, Medical [place] nutritional [facility] tel: and metab [place], Jan 120, 48918 diseases comp [id number] Aldo, preg, third , [place]. [place], tri36 weeks tel:[phone]. gestation of [id number] tel: [phone] Elva Carlson Supervision of Oct-2 Willis Referring In Womens other high 6-201 [place]. 700 Provider: Health TERA, risk 7 Medical Otto [address], pregnancies, [facility] [place], third , Jan 700 [id number], [email or web address] 120, Medical [facility] tel:[facility] gestation of [place], Jan 120, [address] [id number] [place], , [place]. [place], tel: [phone]. [id number] tel:[phone] Elva Carlson Supervision of Oct-1 Willis Referring In Womens other high 0-201 [place]. 700 Provider: Health TERA risk 7 Medical Otto [address], pregnancies, Center [place], [place], third , Jan 700 [id number], [id number] 120, Medical [place] weeks Aldo [place] tel: gestation of [place], Jan 120, [address]61 [id number] [facility] , [place]. [place], tel: [phone]. [id number] tel:[phone] Elva Carlson Supervision of Sep-2 Willis Referring In Womens other high 6-201 [place]. 700 Provider: Hunter HALEY risk 7 Medical [place] [address], pregnancies, [place], third Dr Jan 700 [id number], [email or web address] 120, Medical [place] weeks Carlson [place] tel: gestation of [facility] Jan 120, [address] [id number] [facility]. [place], tel: [phone]. [id number] tel:[phone] Elva Carlson Supervision of Sep-1 Willis Referring In Womens other high 2-201 [place]. 700 Provider: Hunter HALEY, risk 7 Medical [place] [address], pregnancies, [place], third , Jan 700 [id number], trimesterEndo, 120, Medical US nutritional [facility] tel: and metab [place], Jan 120, 56236 diseases comp [id number] Aldo [facility], third , [place]. [place], tri28 weeks tel: [phone]. gestation of [id number] tel: pregnancyType [id number] O blood, Rh negative Elva Carlson Supervision of Aug-1 Willis Referring In Womens other high 7-201 [place]. 700 Provider: Hunter HALEY risk 7 Medical [place] [address], pregnancies, [place], second Dr Jan 700 [id number], [id number] 120, Medical [place] weeks Aldo [place] tel: gestation of [place], Jan 120, [address]261 [id number] [facility]. [place], tel: [phone]. [id number] tel:[phone] Evla Carlson Supervision of Demarcus-2 Willis Referring In Womens other high 0-201 [place]. 700 Provider: Health TERA risk 7 Medical [place] [address], pregnancies, [place], second , Jan Cid [id number], [id number] 120, Medical [place] weeks Aldo [place] tel:21 gestation of [place], Jan 120, 60191 [id number] [place], , . [place], tel:[phone]. [id number] tel:[phone] Elva Carlson Supervision of Demarcus-2 Willis Referring In Womens Ultrasound other high 0-201 [place]. 700 Provider: Hunter HALEY risk 7 Medical [place] [address], pregnancies, [place], second Jan Beth [id number], trimesterEndo, 120, Medical nutritional Aldo [place] tel: and metab [place], Jan 120, 40767 diseases comp [id number] [place], [facility], second , [place]. [place], tri20 weeks tel:[phone]. gestation of [id number] tel: [phone] Elva Carlson Supervision of Zaki-2 Willis Referring In Womens other high 1-201 [place]. 700 Provider: Hunter HALEY risk 7 Medical [place] [address], pregnancies, [place], second , Jan Jose Roberto [id number], trimesterEndo, 120, Medical [place] nutritional Aldo [place] tel: and metab [place], Jan 120, [address]139 diseases comp [id number] Aldo, [facility], second , [place]. [place], tri16 weeks tel:[phone]. gestation of [id number] tel: [phone] Elva Carlson Supervision of September-2 Willis Referring In Womens other high 4-201 [place]. 700 Provider: Hunter HALEY risk 7 Medical [place] [address], pregnancies, [place], first Jan Beth [id number], 120, Medical [place] weeks Aldo [place] tel:21 gestation of [place], Jan 120, [address]775 [id number] [place], , [place]. [place], tel: [phone]. [id number] tel:[phone] Elva Carlson Supervision of May-2 Willis Referring In Womens Ultrasound other high 4-201 [place]. 700 Provider: Health PA, risk 7 Medical [place] [address], pregnancies, [place], first , Jan Cid [id number], [email or web address] 120, Medical [place] weeks Aldo [place] tel:[phone] gestation of [place], Jan 120, 40965 [id number] [place], , [place]. [place], tel: [phone]. [id number] tel:[phone] Elva Carlson May-0 Willis In Womens 7-201 [place]. 700 Health PA, 7 Medical [address], [place]OMO [place], , Jan [id number], 120, [place], tel:+21 [place], [address] [id number] , [place]. tel: [phone] Elva Carlson Supervision of May-0 Willis Referring In Womens other high 2-201 [place]. 700 Provider: Health PA, risk 7 Medical [place] [address], pregnancies, [facility] [place], first , [facility] Jose Roberto [id number], [id number] 120, Medical US weeks Aldo [place] tel:+21 gestation of [place], Jan 120, 74078 [id number] [place], , [place]. [place], tel: [phone]. [id number] tel:[phone] Elva Carlson Apr-1 Willis In Womens 8-201 [place]. 700 Health PA, 7 Medical [address], [place] SHLOMO Pavon, , Jan , 120, [place], tel:+21 [place], [address] [id number] , [place]. tel:[phone] Elva Carlson Ot dis of Apr-1 Willis Referring In Womens bld/bld-form 1-201 [place]. 700 Provider: Health PA, org/immun 7 Medical [place] [address], [facility] [place], preg, 1st tri , [facility] 700 [id number], 120, [facility] tel:21 [place] [address], [address] [id number] [facility]. [place], tel: [phone]. [id number] tel:[phone] Elva Carlson Apr- [facility] In Womens 9-201 [place]. [facility], 2 700 [address], [facility] [place] [id number], , [facility] 120, tel:21 [place], [address] [place], [id number] , . tel: [phone] Family History Family Member Diagnosis Age At [...] name Insurance type Covered libertarian ID Authorization(s) [facility] [id number] [facility] [id number] [facility] [id number] [facility] [id number] Social History Type Description Quantity Date Captured Unknown Vital Signs Date / Height Weight BMI Pulse Blood Temperature Respiratory Body Head BMI Time: Rate Pressure Rate Surface Circumference percentile Area Unknown Chief Complaint And Reason For Visit Unknown Chief Complaint And Reason For Visit Reason For Referral Reason For Referral Unknown Plan Of Care Date Type Action Status Appointment Syeda Zimmerman BOOKED Future Order: Radiology Order Ultrasound OB Follow-up ([id number]) Ordered Future Order: Radiology Order Nuchal Translucency ([id number]) Ordered Future Order: Radiology Order Complete OB Ultrasound > 14 Ordered Weeks ([id number]) Date Type Problem Goal Intervention Status Start [...]
--- OUTSIDE RECORDS SUMMARY | 2017-04-23 18:47 | External Medical Summary | Continuity of Care Document ---
:1983 Author Organization [facility] Address [address] [place], [place] [id number] Phone Allergies, Adverse Reactions, Alerts Substance Reaction [...] second trimester 20 weeks gestation of - Ot dis of [...] second tri 20 weeks gestation of - Procedures Procedure Date OB Visit No Charge Results Test Name Date and Time Measure Units Reference Range Abnormal Flag Comments Unknown Advance Directives Directive Yes / No Effective Date File Name Unknown Encounters Encounter Practice Location Reason(s) Diagnoses Date Provider Care Team Description For Visit Members Elva Carlson Supervision Willis Referring In Womens of other high 0-201 [place]. 700 Provider: risk Monty 7 Medical Otto [address], pregnancies, [facility] [place], alessandro Beth, Jan 700 , [email or web address] 120, Medical US weeks [facility] tel:21 gestation of [place], Jan 120, [address] [id number] [facility]. [place], tel:[phone]. [id number] tel:[phone] Elva Carlson Supervision Willis Referring In Womens Ultrasound of other high 0-201 [place]. 700 Provider: risk Monty 7 Medical Otto [address], pregnancies, [place], second Dr, Jan 700 , trimesterEndo 120, Medical [place] , nutritional [facility] tel: and metab [place], Jan 120, 36086 diseases comp [id number] Aldo [facility], second , [place]. [place], tri20 weeks tel:[phone]. gestation of [id number] tel: [phone] Associates Aldo Supervision Willis Referring In Womens of other high 1-201 [place]. 700 Provider: Hunter HALEY risk 7 Medical Otto [address], pregnancies, [place], second Dr, Jan 700 , trimesterEndo 120, Medical [place] , nutritional [facility] tel: and metab [facility] Jan 120, 22684 diseases comp [id number] Aldo [facility], second , [place]. [place], tri16 weeks tel:[phone]. gestation of [id number] tel:[phone] Associates Aldo Supervision Willis Referring In Womens of other high 4-201 [place]. 700 Provider: risk Monty 7 Medical [place] [address], pregnancies, [place], first Beth, [facility] 700 [id number], [email or web address] 120, Medical [facility]: gestation of [place], Jan 120, [address] [id number] [place], , [place]. [place], tel:[phone]. [id number] tel:[phone] Elva Carlson Supervision May-2 Willis Referring In Womens Ultrasound of other high 4-201 [place]. 700 Provider: Health TERA, risk 7 Medical Otto [address], pregnancies, Center [place], first , [facility] 700 , [id number] 120, Medical US weeks [facility] tel: gestation of [place], Jan 120, 12883 [id number] [place], , [place]. [place], tel: [phone]. [id number] tel:[phone] Elva Carlson May-0 Willis In Womens 7-201 [place]. 700 Health TERA, Key Medical [address], [place] SH[place] [facility] , 120, [place], tel: [place], [address] [id number] , [place]. tel: [phone] Elva Carlson Supervision May-0 Willis Referring In Womens of other high 2-201 [place]. 700 Provider: Health TERA, risk 7 Medical Otto [address], pregnancies, Center [place], first Beth, [facility] 700 [id number], trimester9 120, Medical US weeks [facility] [place] tel: gestation of [place], Jan 120, [address]252 [id number] [place], , [place]. [place], tel: [phone]. [id number] tel:[phone] Elva Carlson Apr-1 Willis In Womens 8-201 [place]. 700 Health TERA, 7 Medical [address], [place] [address] [facility] , 120, [place], tel:21 [place], [address] [id number] , [place]. tel: [phone] Elva Carlson Oth dis of Apr-1 Willis Referring In Womens bld/bld-form 1-201 [place]. 700 Provider: Health PA, org/immun 7 Medical [place] [address], [facility] [place], preg, 1st tri , [facility] 700 [id number], [facility], [facility] tel:[phone] [place], [facility] 120, [address] [id number] [facility]. [place], tel: [phone]. [id number] tel:[phone] Elva Carlson Apr- [facility] W[facility]ens 9-201 [place]. Health PA, 2 700 [address], [facility] [id number], , [facility] 120, tel:[phone] [facility] [address] [place], [id number] , . tel: [phone] Family History Family Member Diagnosis Age At [...] Unknown Payers Payer name Insurance type Covered libertarian ID Authorization(s) [facility] [id number] Social History Type Description Quantity Date Captured Alcohol Use Details No Caffeine Use Details Unknown Tobacco Use Status Unknown Smoking Status Never smoker Vital Signs Date / Height Weight BMI Pulse Blood Temperature Respiratory Body Head BMI Time: Rate Pressure Rate Surface Circumference percentile Area 167.10 26.5 lbs 6 mm[Hg] 2:47 kg/m PM eter (2) Chief Complaint And Reason For Visit Unknown Chief Complaint And Reason For Visit Reason For Referral Reason For Referral Unknown Plan Of Care Date Type Action Status Appointment Syeda Zimmerman BOOKED Future Order: Radiology Order Nuchal Translucency ([id number]) Ordered Future Order: Radiology Order Complete OB Ultrasound > 14 Ordered Weeks ([id number]) Date Type Problem Goal Intervention Status Start [...]
--- OUTSIDE RECORDS SUMMARY | 2017-04-23 18:47 | External Medical Summary | Continuity of Care Document ---
:1983 Author Organization [facility] Address [address] [place], [place] [id number] Phone Allergies, Adverse Reactions, Alerts Substance Reaction [...] second tri 20 weeks gestation of - Oth dis of [...] weeks gestation of - Procedures Procedure Date Ultrasound exam of preg uterus, complete Results Test Name Date and Time Measure Units Reference Range Abnormal Flag Comments Unknown Advance Directives Directive Yes / No Effective Date File Name Unknown Encounters Encounter Practice Location Reason(s) Diagnoses Date Provider Care Team Description For Visit Members Elva Carlson Supervision Willis Referring In Womens of other high 0-201 [place]. 700 Provider: Hunter HALEY risk 7 Medical [place] [address], pregnancies, [place], alessandro Beth, Jan Jose Roberto [id number], [id number] 120, Medical US weeks [facility] tel:21 gestation of [place], Jan 120, [address] [id number] [place], , [place]. [place], tel:[phone]. [id number] tel:[phone] Elva Carlson Supervision Willis Referring In Womens Ultrasound of other high 0-201 [place]. 700 Provider: Hunter HALEY risk 7 Medical [place] [address], pregnancies, [place], alessandro Beth, Jan Jose Roberto [id number], trimesterEndo 120, Medical [place] , nutritional [facility] tel: and metab [place], Jan 120, 15788 diseases comp [id number] Aldo, [facility], second , [place]. [place], tri20 weeks tel:[phone]. gestation of [id number] tel:[phone] Associates Aldo Supervision Willis Referring In Womens of other high 1-201 [place]. 700 Provider: Hunter HALEY risk 7 Medical [place] [address], pregnancies, [place], alessandro Beth, Jan Jose Roberto [id number], trimesterEndo 120, Medical [place] , nutritional [facility] tel:21 and metab [place], Jan 120, 37841 diseases comp [id number] Aldo, [facility], second , [place]. [place], tri16 weeks tel: [phone]. gestation of [id number] tel:[phone] Associates Aldo Supervision Willis Referring In Womens of other high 4-201 [place]. 700 Provider: Hunter HALEY risk 7 Medical [place] [address], pregnancies, [place], first Beth [facility] 700 [id number], 120, Medical [facility] tel: gestation of [place], Jan 120, [address] [id number] [place], , [place]. [place], tel: [phone]. [id number] tel:[phone] Elva Carlson Supervision May-2 Willis Referring In Womens Ultrasound of other high 4-201 [place]. 700 Provider: Health TERA, risk 7 Medical [place] [address], pregnancies, Center [place], first , [facility] 700 [id number], 120, Medical US weeks [facility] tel: gestation of [place], Jan 120, 48098 [id number] [place], , [place]. [place], tel: [phone]. [phone] tel:[phone] Elva Carlson May-0 Willis In Womens 7-201 [place]. 700 Hunter HALEY, Key [facility] [address], [place] [address], [facility] , 120, [place], [place]: [place], [address] [id number] , [place]. tel: [phone] Elva Carlson Supervision May-0 Willis Referring In Womens of other high 2-201 [place]. 700 Provider: Hunter HALEY, risk 7 Medical Otto [address], pregnancies, Center [place], first , [facility] 700 [id number], trimester9 120, Medical US weeks [facility] tel: gestation of [place], [place] 120, [address] [id number] [place], , [place]. [place], tel: [phone]. [id number] tel:[phone] Elva Carlson Apr-1 Willis In Womens 8-201 [place]. 700 Health TERA, 7 Medical [address], [place] [address], [facility] , 120, [place], tel:21 [place], [address] [id number] , [place]. tel: [phone] Elva Carlson Oth dis of Apr-1 Willis Referring In Womens bld/bld-form 1-201 [place]. 700 Provider: Health PA, org/immun 7 Medical [place] [address], [facility] Willis [place], [place], [place], preg, 1st tri , [place] [address] [id number], [facility], [facility] tel:+21 [place], [facility] 120, [address] [id number] [facility]. [place], tel: [phone]. [id number] tel:[phone] Elva Carlson Apr- [facility] Womens 9-201 [place]. Health PA, 2 700 [address], [place], [place], [place] [id number], , [facility] 120, tel:21 [place], [address] [place], [id number] , . tel: [phone] Family History Family Member Diagnosis Age At [...] Unknown Payers Payer name Insurance type Covered green party ID Authorization(s) [facility] [id number] Social History Type Description Quantity Date Captured [...] Syeda Zimmerman BOOKED Future Order: Radiology Order Complete OB Ultrasound > 14 Ordered Weeks ([id number]) Future Order: Radiology Order Nuchal Translucency ([id number]) Ordered Date Type Problem Goal Intervention Status [...]
--- OUTSIDE RECORDS SUMMARY | 2017-04-23 18:47 | External Medical Summary | Continuity of Care Document ---
:1985 Author Organization [facility] Address [address] [place], [place] [id number] Phone Allergies, Adverse Reactions, Alerts Substance Reaction [...] Effective Dates (start - stop) Clinical Status Endo, nutritional and metab diseases - comp preg, third tri Encounter For Screening For - Streptococcus B 36 weeks gestation of - Oth dis [...] third tri 38 weeks gestation of - Procedures Procedure Date Immuniz admnin, 1 vac, sngl/combo 19 Yrs + TDAP VACCINE >7 IM OB Visit No Charge TSH Venpnctr fngr/heel/ear stick routne Cult, pathgnc orgnsm, screen Results Test Name Date and Time Measure Units Reference Range Abnormal Flag Comments Panel Description: STREPTOCOCCUS, GROUP B CULTURE STREPTOCOCCUS, GROUP SEE NOTE STREPTOCOCCUS, GROUP B CULTURE B CULTURE 14:43:00 MICRO NUMBER: [id number] TEST STATUS: FINAL SPECIMEN SOURCE: VAGINAL/ANORECTAL SPECIMEN QUALITY: ADEQUATE RESULT: No group B Streptococcus isolatedREPORT COMMENT:FASTING:UNKNOWNTest performed at [facility] [id number] [address] [place], [place] [address]Rifugoey: NAYELI RIZVI DO,MPH Panel Description: Thyrotropin [Units/volume] in Serum or Plasma TSH 14:49:00 1.48 mIU/L N Reference Range > or=20 Years 0.40-4.50 Ranges First trimester 0.26-2.66 Second trimester 0.55-2.73 Third trimester 0.43-2.91REPORT COMMENT:FASTING:NOTest performed at [facility] [id number] [place] [address]Ckratygb: NAYELI RIZVI DO,MPH Advance Directives Directive Yes / No Effective Date File Name Unknown Encounters Encounter Practice Location Reason(s) Diagnoses Date Provider Care Team Description For Visit Members Elva Carlson Supervision of Willis Referring In Womens other [facility] 2[address] [place]. 700 Provider: Health PA, risk 7 Medical [place] [address], pregnancies, [place], third , Jan 700 [id number], trimesterEndo, 120, Medical nutritional [place] tel: and metab [place], [facility] 120, [id number] diseases comp [id number] Carlson, [facility] , . [place], tri38 weeks tel:[phone]. gestation of [id number] tel: [phone] Elva Carlson Supervision of Mar- [place] Referring In Womens other [facility] [address] [place]. 700 Provider: Health PA, risk 7 Medical [place] [address], pregnancies, [place], third , Jan 700 [id number], [id number] 120, Medical [place] weeks Alis Carlson Dr tel:21 gestation of [place], Jan 120, [address] [id number] [facility]. [place], tel:[phone]. [id number] tel:[phone] Elva Carlson Endo, Nov-0 [place] Referring In Womens nutritional 8-201 [place]. 700 Provider: Health PA, and metab 7 Medical [place] [address], diseases comp [place], preg, third Jan Beth 700 [id number], triEncounter 120, Medical [place] For [place] tel: Screening For [place], Jan 120, [id number] Streptococcus [id number] Carlson, B36 weeks , [place]. [place], gestation of tel:[phone]. [id number] tel:[phone] Elva Carlson Supervision of Nov-0 [place] Referring In Womens Ultrasound other high 8-201 [place]. 700 Provider: Health TERA, risk 7 Medical [place] [address], pregnancies, [place], third , Jan 700 [id number], trimesterEndo, 120, Medical [place] nutritional [facility] tel: and metab [place], Jan 120, [address] diseases comp [id number] [place], preg, third , [place]. [place], tri36 weeks tel:[phone]. gestation of [id number] tel: [phone] Elva Carlson Supervision of Oct-2 Willis Referring In Womens other high 6-201 [place]. 700 Provider: Hunter HALEY, risk 7 Medical [place] [address], pregnancies, [place], third , Jan 700 [id number], [email or web address] 120, Medical [place] weeks [facility] tel: gestation of [place], Jan 120, [address] [id number] [place], , [place], tel:[phone]. [id number] tel:[phone] Elva Carlson Supervision of Oct-1 [place] Referring In Womens other high 0-201 [place]. 700 Provider: Hunter HALEY, risk 7 Medical [place] [address], pregnancies, [place], third , Jan 700 [id number], [email or web address] 120, Medical [facility]: gestation of [place], Jan 120, [address] [id number] [place], , [place]. [place], tel:[phone]. [id number] tel:[phone] Elva Carlson Supervision of Sep-2 [place] Referring In Womens other high 6-201 [place]. 700 Provider: Hunter HALEY, risk 7 Medical [place] [address], pregnancies, [place], third Dr Jan 700 [id number], [email or web address] 120, Medical [place] [facility] tel: gestation of [place], Jan 120, [address] [id number] [facility] , . [place], tel: [phone]. [id number] tel:[phone] Elva Carlson Supervision of Sep-1 Willis Referring In Womens other high 2-201 [place]. 700 Provider: Hunter HALEY risk 7 Medical [place] [address], pregnancies, [place], third , Jan 700 [id number], trimesterEndo, 120, Medical [place] nutritional [facility] tel: and metab [place], Jan 120, [address] diseases comp [id number] [place] preg, third , [place], tri28 weeks tel: [phone]. gestation of [id number] tel: pregnancyType [id number] O blood, Rh negative Associates [place] Supervision of Aug-1 Willis Referring In Womens other high 7-201 [place]. 700 Provider: Hunter HALEY risk 7 Medical [place] [address], pregnancies, [place], second , Jan 700 [id number], [email or web address] 120, Medical [place] weeks [facility] tel: gestation of [place], Jan 120, [address] [id number] [facility] , . [place], tel: [phone]. [id number] tel:[phone] Elva Carlson Supervision of Demarcus-2 [place] Referring In Womens other high 0-201 [place]. 700 Provider: Hunter HALEY risk 7 Medical [place] [address], pregnancies, [place], second , Jan 700 [id number], [email or web address] 120, Medical [place] [facility] tel: gestation of [place], Jan 120, [address] [id number] [facility]. [place], tel: [phone]. [id number] tel:[phone] Elva Carlson Supervision of Demarcus-2 [place] Referring In Womens Ultrasound other high 0-201 [place]. 700 Provider: Hunter HALEY risk 7 Medical [place] [address], pregnancies, [place], second , Jan 700 , trimesterEndo, 120, Medical [place] nutritional [place] tel: and metab [place], Jan 120, [address] diseases comp [id number] Carl[place], preg, second , [place]. [place], tri20 weeks tel:[phone]. gestation of [id number] tel:[phone] Elva Carlson Supervision of Zaki-2 [place] Referring In Womens other high 1-201 [place]. 700 Provider: Hunter HALEY, risk 7 Medical [place] [address], pregnancies, Center [place], second , Jan 700 [id number], trimesterEndo, 120, Medical [place] nutritional [place] tel: and metab [place], Jan 120, [address] diseases comp [id number] [place], preg, second , [place]. [place], tri16 weeks tel:[phone]. gestation of [id number] tel:[phone] Elva Carlson Supervision of May-2 [place] Referring In Womens other high 4-201 [place]. 700 Provider: Hunter HALEY, risk 7 Medical [place] [address], pregnancies, [place], first , Jan 700 [id number], [id number] 120, Medical [place] weeks [place] tel: gestation of [place], Jan 120, [address] [id number] [place], , [place]. [place], tel:[phone]. [id number] tel:[phone] Elva Carlson Supervision of May-2 Willis Referring In Womens Ultrasound other high 4-201 [place]. 700 Provider: Hunter HALEY, risk 7 Medical [place] [address], pregnancies, [place], first , Jan 700 [id number], [email or web address] 120, Medical [place] weeks [place] tel: gestation of [place], Jan 120, [address] [id number] [place], , [place]. [place], tel:[phone]. [id number] tel:[phone] Elva Carlson May-0 [place] In Womens 7-201 [place]. 700 Hunter HALEY, 7 Medical [address], Center [place] [address] Jan [id number], 120, [place], tel:+21 [place], [id number] , [place]. tel: [phone] Elva Carlson Supervision of May-0 [place] Referring In Womens other high 2-201 [place]. 700 Provider: Health PA, risk 7 Medical [place] [address], pregnancies, [place], first , [place] [address] [id number], [id number] 120, Medical [facility] tel: gestation of [place], Jan 120, [address] [id number] [facility]. [place], tel: [phone]. [id number] tel:[phone] Elva Carlson Apr-1 [place] In Womens 8-[address] [place]. 700 Health PA, 7 Medical [address], [place], , [facility] [id number], 120, [place], tel:+21 [place], [address] [id number] , . tel: [phone] Elva Carlson Oth dis of Aug- Willis Referring In Womens bld/bld-form 201 [place]. 700 Provider: Health PA, org/immun 7 Medical [place] [address], [facility] [place], preg, 1st tri , [place] [address] [id number], 120, Medical [facility] tel:+ [place], Jan 120, [address] [id number] [facility]. [place], tel: [phone]. [id number] tel:[phone] Elva Carlson Dec-1 [facility] W[facility]ens 9-201 [place]. Health PA, 2 700 [address], [place], [place], [place] [id number], , [employer] [facility] 120, tel:+21 [place], [address] [place], [id number] , . tel: [phone] Family History Family Member Diagnosis Age At [...] name Insurance type Covered republican ID Authorization(s) [facility] [id number] [facility] [id number] [facility] [id number] [facility] [id number] Social History Type Description Quantity Date Captured Alcohol Use Details No Caffeine Use Details Unknown Tobacco Use Status Unknown Smoking Status Never smoker Vital Signs Date / Height Weight BMI Pulse Blood Temperature Respiratory Body Head BMI Time: Rate Pressure Rate Surface Circumference percentile Area 189.80 30.1 127/70 lbs 7 mm[Hg] 2:14 kg/m PM eter (2) Chief Complaint And Reason For Visit Unknown Chief Complaint And Reason For Visit Reason For Referral Reason For Referral Unknown Plan Of Care Date Type Action Status Appointment Syeda Zimmerman BOOKED Future Order: Radiology Order Nuchal Translucency ([id number]) Ordered Future Order: Radiology Order Complete OB Ultrasound > 14 Ordered Weeks ([id number]) Future Order: Radiology Order Ultrasound OB Follow-up ([id number]) Ordered Date Type Problem Goal Intervention Status [...]
[2017-04-23] MEDS ORDERED: CALCIUM CARBONATE Chewable 500mg TABLET PO PRN ×2 (19:21→23:06)
[2017-04-23] MEDS ORDERED: LIDOCAINE 1% (10mg/ml) 2mL INJ PF SDV ID PRN (19:21)
[2017-04-23] MEDS ORDERED: LR 1,000 ML IV PRN (19:21)
[2017-04-23] MEDS ORDERED: METHYLERGONOVINE 0.2 MG/ML INJECTION IM PRN (19:21)
[2017-04-23] MEDS ORDERED: ACETAMINOPHEN 500 MG TABLET PO PRN ×2 (19:21→23:06)
[2017-04-23] MEDS ORDERED: MAG-AL + SIM ORAL LIQUID 30ml PO PRN ×2 (19:21→23:06)
[2017-04-23] MEDS ORDERED: CARBOPROST 250 MCG/ML INJECTION IM PRN (19:21)
[2017-04-23 19:32] VITALS: BMI 29.3
[2017-04-23] MEDS ORDERED: DiphenhydrAMINE 25 MG CAPSULE PO PRN (23:06)
[2017-04-23] MEDS ORDERED: SALINE FLUSH 10ml SYRINGE IV PRN (23:06)
[2017-04-23] MEDS ORDERED: HYDROCORTISONE 2.5% CREAM 30gm RECTALLY PRN (23:06)
[2017-04-23] MEDS ORDERED: OXYTOCIN DRIP 30 UNIT/500 ML ML IV SCH (23:15)
--- NOTE | 2017-04-23 23:39 | OB/GYN Procedure Note ---
Delivery date: 04/23/17 Procedure: Induction method: none Delivery monitor: external FHT Route of delivery: Laceration description: Perineal - 2nd Degree Delivery repair: vicryl Estimated blood loss (mL): 300 Anesthesia type: None Disposition: floor - [place] Baby 1 presentation: Vertex Placenta delivery description: Spontaneous cord vessel description: 3 Vessels at 1 minute: 8 at 5 minutes: 9
[2017-04-24] MEDS: IBUPROFEN 800 MG TABLET PO PRN ×3 (00:41→18:31)
[2017-04-24] MEDS: HYDROCODONE/APAP 5mg/325mg TABLET PO PRN ×2 (02:20→15:50)
--- NOTE | 2017-04-24 07:21 | OB/GYN Progress Note ---
OB-PP Progress Note - General PPD1 Maternal Group B Strep: Negative Maternal blood type: O- Maternal Rubella Status: Immune - Subjective Date: 04/24/17 Lochia: Minimal Pain: controlled Nausea or Vomiting Present: No - Objective Vital Signs: Last Vital Signs Temp 98.2 F 04/24/17 03:30 Pulse 60 04/24/17 03:30 Resp 16 04/24/17 03:30 BP 102/56 04/24/17 03:30 Pulse Ox 98 04/24/17 03:30 General: alert and oriented Cardiovascular: regular rate,rhythm Respiratory: non-labored Abdomen: fundus firm, non-tender Extremities: non-tender Laboratory: Laboratory Results - last 24 hr 04/23/17 04/23/17 04/23/17 19:33 19:33 22:55 WBC 23.2 H RBC 3.76 L Hgb 12.4 Hct 36.5 MCV 97.1 MCH 33.0 MCHC 34.0 RDW Std Deviation 43.4 Plt Count 168 MPV 10.5 Cord VBG pH Cord VBG pCO2 Cord VBG pO2 Cord VBG HCO3 Cord VBG Total CO2 Cord VBG Base Excess Cord VBG O2 Sat Blood Type O Negative Antibody Screen Negative RhIG Candidate? Is a candidate 04/23/17 23:05 WBC RBC Hgb Hct MCV MCH MCHC RDW Std Deviation Plt Count MPV Cord VBG pH 7.341 Cord VBG pCO2 33.9 Cord VBG pO2 35 Cord VBG HCO3 18 Cord VBG Total CO2 19 Cord VBG Base Excess -6.0 Cord VBG O2 Sat 65.0 Blood Type Antibody Screen RhIG Candidate? - Assessment Assessment: HAJA PHAM - Plan Plan: routine care Expected date of discharge: 04/25/17 Delivered late at night Dismissal PPD #2
[2017-04-24] MEDS: DOCUSATE CALCIUM 240 MG CAPSULE PO SCH (10:05)
[2017-04-24] MEDS: ENOXAPARIN 40 MG/0.4 ML INJECTION SQ SCH (10:07)
[2017-04-24] MEDS ORDERED: RHO(D) IMMUNE GLOBULIN 300 MCG/2 ML INJECTION IVP ONE (20:48)
[2017-04-24 22:22] VITALS: O2SAT 98
[2017-04-25] MEDS: HYDROCODONE/APAP 5mg/325mg TABLET PO PRN ×2 (00:07→12:27)
[2017-04-25] MEDS: IBUPROFEN 800 MG TABLET PO PRN (06:37)
[2017-04-25 07:02] VITALS: BP 111/69; PULSE 54; RESP 16; TEMP 97.9
--- NOTE | 2017-04-25 08:41 | OB/GYN Progress Note ---
OB-PP Progress Note - General PPD2 Maternal Group B Strep: Negative Maternal blood type: O- Maternal Rubella Status: Immune - Subjective Date: 04/25/17 Lochia: Minimal Pain: controlled Voiding: voiding Nausea or Vomiting Present: No - Objective Vital Signs: Last Vital Signs Temp 97.9 F 04/25/17 06:59 Pulse 54 L 04/25/17 06:59 Resp 16 04/25/17 06:59 BP 111/69 04/25/17 06:59 Pulse Ox 98 04/24/17 19:45 General: alert and oriented Cardiovascular: regular rate,rhythm Respiratory: non-labored Abdomen: fundus firm, non-tender Extremities: non-tender Laboratory: Laboratory Results - last 24 hr 04/24/17 07:11 Hgb /Adult Ratio 0.0000 - Assessment Assessment: SP, - Plan Plan: routine care, discharge home
[2017-04-25] MEDS: DOCUSATE CALCIUM 240 MG CAPSULE PO SCH (09:48)
[2017-04-25] MEDS: ENOXAPARIN 40 MG/0.4 ML INJECTION SQ SCH (09:48)
--- NOTE | 2017-04-25 12:59 | Labor and Delivery Note ---
DATE OF DELIVERY 04/23/2017 Normal spontaneous vaginal delivery of a live male infant in the cephalic presentation over intact perineum without epidural anesthesia. No meconium was noted at delivery. A nuchal cord x 1 was noted and was loose and reduced. There was spontaneous vaginal delivery of the placenta with a three-vessel cord. She had a second-degree perineal laceration and a right periurethral laceration. The perineal laceration was repaired with 2-0 Vicryl and the periurethral laceration was hemostatic and not repaired. Blood loss during delivery was 300 ml. The patient had presented in spontaneous labor and progressed rapidly from 4 cm to 6 cm and then to 9 cm. Baby was noted to be OP at this time with significant swelling of the anterior cervical lip. The patient was feeling a significant amount of pressure and uncomfortable due to being unblocked and so she was placed in the knee-chest position where she labored for approximately 15 minutes and then was placed with the assistance of the bar in the squatting position and was noted to be complete and pushed, and a this time the baby was noted to have rotated to the OA position and the patient made good progress pushing. She then was placed in the dorsal lithotomy position where she continued to make progress until she had spontaneous vaginal delivery. HANNY
== END 2017-04-25 14:22 | disposition home or self-care (01) | DRG 775 ==
LOC: OBOBS 18:42 → MC 18:43
PROVIDERS: ADMIT Obstetrics & Gynecology; ATTEND Obstetrics & Gynecology